=== PATIENT | male | born 2005 | race Two or more races ===

== ENCOUNTER 2024-06-19 10:43 | Emergency (ER) | payer BC, MEDICAID ==
[~2024-06-19] VITALS: Ht 162.6 cm; Wt 63.2 kg
--- NOTE | 2024-06-19 11:50 | DVH ---
PROCEDURE: Left foot radiographs. INDICATION: INJURY, LEFT 5TH TOE TECHNIQUE: 3 views of the left foot were obtained. COMPARISON: None FINDINGS: There is an acute fracture of the 5th proximal phalanx. Joint spaces are maintained. The s oft tissues are unremarkable. IMPRESSION: 1. Acute fracture of the 5th proximal phalanx.
[2024-06-19] MEDS ORDERED: IBUP-1456 PO (13:27)
--- NOTE | 2024-06-19 13:29 | ED.PDOC ---
Musculoskeletal HPI Comments A 18 YEAR OLD MALE PRESENTS TO THE ED WITH COMPLAINT OF TOE PAIN. PATIENT REPORTS THAT HE HAD BEEN RUNNING TO HIS ROOM WHEN HE ACCIDENTALLY JAMMED HIS LEFT FIFTH TOE INTO A WALL, CAUSING A LOT OF PAIN AND BRUISING TO THE AREA. PATIENT DENIES NUMBNESS, WEAKNESS, FALL, OR OTHER COMPLAINTS. NO OTHER SYMPTOMS OR MODIFYING FACTORS AT THIS TIME. Chief Complaint: Lower Extremity Time Seen by MD: 13:15 Reviewed Notes: Nurses Notes, Medications, Allergies Allergies: Coded Allergies: NO KNOWN ALLERGIES (Unverified , 06/19/24) Home Meds Active Scripts Ibuprofen (Ibuprofen) 800 Mg Tab, 1 TAB PO TID, #30 TAB Prov:BOLA GANHANK KIRAN 06/19/24 Information Source: Patient Mode of Arrival: Ambulatory Location: Left Extremity Location: Little Toe Timing: Hours Prehospital treatment: None Severity: Moderate Able to Move Extremity: Yes Bear Weight: Fully Pain: Moderate Mechanism: Jam Circumstances: Accident Onset of Symptoms: After Trauma Symptoms: Swelling, Pain DVT Risk Factors: NONE Last Tetanus: Unknown Associated signs and symptoms: None Past Medical History PAST MEDICAL HISTORY: Denies Surgical History: Denies all surgeries Family History Family History: Reviewed,noncontributory to illness Social History Smoker: Non-Smoker Alcohol: Denies ETOH Use Drugs: Denies Drug Use Lives In: Home Constitutional: denies: chills, diaphoresis, fatigue, fever, malaise, sweats, weakness, others EENTM: denies: blurred vision, double vision, ear bleeding, ear discharge, ear drainage, ear pain, ear ringing, eye pain, eye redness, hearing loss, mouth pain, mouth swelling, nasal discharge, nose bleeding, nose congestion, nose pain, photophobia, tearing, throat pain, throat swelling, voice changes, others Respiratory: denies: cough, hemoptysis, orthopnea, SOB at rest, shortness of breath, SOB with excertion, stridor, wheezing, others Cardiovascular: denies: chest pain, dizzy spells, diaphoresis, Dyspnea on exertion, edema, irregular heart beat, left arm pain, lightheadedness, palpitations, PND, syncope, others Gastrointestinal: denies: abdomen distended, abdominal pain, blood streaked bowels, constipated, diarrhea, dysphagia, difficulty swallowing, hematemesis, melena, nausea, poor appetite, poor fluid intake, rectal bleeding, rectal pain, vomiting, others Genitourinary: denies: burning, dysuria, flank pain, frequency, hematuria, incontinence, penile discharge, penile sore, pain, testicle pain, testicle swelling, urgency, others Neurological: denies: dizziness, fainting, headache, left sided numbness, left sided weakness, numbness, paresthesia, pre-existing deficit, right sided numbness, right sided weakness, seizure, speech problems, tingling, tremors, weakness, others Musculoskeletal: reports: joint pain, joint swelling, others (LEFT FIFTH TOE INJURY); denies: back pain, gout, muscle pain, muscle stiffness, neck pain Integumetry: reports: bruises (LEFT 5TH TOE REGION ); denies: change in color, change in hair/nails, dryness, laceration, lesions, lumps, rash, wounds, others Allergic/Immunocompromised: denies: Difficulty Healing, Frequent Infections, Hives, Itching, others Hematologic/Lymphatic: denies: anemia, blood clots, easy bleeding, easy bruising, swollen glands, others Endocrine: denies: excessive hunger, excessive sweating, excessive thirst, excessive urination, flushing, intolerance to cold, intolerance to heat, unexplained weight gain, unexplained weight loss, others Psychiatric: denies: anxiety, bipolar disorder, depression, hopeless, panic disorder, schizophrenia, sleepless, suicidal, others All Other Systems: Reviewed and Negative Physical Exam General Appearance: No Apparent Distress, Normal HEENT: Normal ENT Inspection, PERRL/EOMI Neck: Full Range of Motion, Non-Tender, Normal, Normal Inspection Respiratory: Chest Non-Tender, Lungs Clear, No Accessory Muscle Use, No Respiratory Distress, Normal Breath Sounds Cardiovascular: No Edema, No JVD, No Murmur, No Gallop, Normal Peripheral Pulses, Regular Rate/Rhythm Breast Exam: Deferred Gastrointestinal: No Organomegaly, Non Tender, No Pulsatile Mass, Normal Bowel Sounds, Soft Genitalia: Deferred Pelvic: Deferred Rectal: Deferred Extremities: No calf tenderness, Normal capillary refill, Normal range of motion, No pedal edema, Tender (WITH LOCALIZED CONTUSION AND SWELLING ON LEFT 5TH TOE REGION, NO DEFORMITY. ) Musculoskeletal : Apperance: Normal Neurologic: Alert, assistant surveyor II-XII nml as Tested, No Motor Deficits, Normal Affect, Normal Mood, No Sensory Deficits Cerebellar Function: Normal Reflexes: Normal Skin: Bruises (AND SWELLING ON LEFT 5TH TOE REGION. ), Dry, Normal Color, Warm Peripheral Pulses: 2+ dorsalis pedis (R), 2+ dorsalis pedis (L) Lymphatic: No Adenopathy Was a procedure done? Was a procedure done?: No Differential Diagnosis EXT Differential Diagnosis: Fracture, Sprain, Contusion, Strain, Bursitis X-Ray, Labs, Meds, VS Vital Signs Date Time Temp Pulse Resp B/P (MAP) Pulse Ox O2 Delivery O2 Flow Rate FiO2 06/19/24 13:30 88 18 98 Room Air 06/19/24 13:30 98.7 88 18 148/58 (88) 98 98.7 06/19/24 11:05 98.9 89 18 143/59 (87) 98 LT FOOT XR: FINDINGS: There is an acute fracture of the 5th proximal phalanx. Joint spaces are maintained. The soft tissues are unremarkable. IMPRESSION: 1. Acute fracture of the 5th proximal phalanx. X-Ray, Labs, Meds, VS Comment TOE TAPPED AND POST OP SHOE APPLIED TO LEFT FOOT Images Reviewed?: Images reviewed and evaluated by me Time of 1ST Reevaluation: 13:36 Reevaluation 1ST: Improved Patient Education/Counseling: Diagnosis, Treatment, Need For Follow Up Family Education/Counseling: Diagnosis, Treatment, No Family Present Medical Screening: No EMC Exist At This Time Departure 1 Departure Time of Disposition: 13:37 Impression: Primary Impression: Closed fracture of phalanx of left fifth toe Qualified Codes: S92.502A - Displaced unspecified fracture of left lesser toe(s), initial encounter for closed fracture Disposition: 01 HOME / SELF CARE / HOMELESS Condition: Stable Additional Instructions: FOLLOW-UP WITH PCP IN 1 TO 2 DAYS. TAKE MEDICATIONS PRESCRIBED. RETURN TO ED FOR ANY NEW OR WORSENING SYMPTOMS. e-Prescriptions Ibuprofen (Ibuprofen) 800 Mg Tab 1 TAB PO TID, #30 TAB Prov: CALI GAN 06/19/24 Discharged With: Self Critical Care Note Critical Care Time?: No Stability Stability form required: No Heart Score Heart Score: Heart Score Response (Comments) Value History N/A 0 EKG N/A 0 Age N/A 0 Risk Factors N/A 0 Troponin N/A 0 Total 0 I personally scribed for CALI GAN ([email or web address]) on 06/19/24 at 13:28. Electronically submitted by Maulik Bagley ([email or web address]). CALI GAN Jun 19, 2024 13:28
[2024-06-19 13:30] VITALS: BP 148/58; PULSE 88; RESP 18; TEMP 98.7; O2SAT 98
== END 2024-06-19 13:35 | disposition home or self-care (01) ==
LOC: ER 10:43
DX: S92.512A Displaced fracture of proximal phalanx of left lesser toe(s), initial encounter for closed fracture (principal); Z79.1 Long term (current) use of non-steroidal anti-inflammatories (NSAID); W22.8XXA Striking against or struck by other objects, initial encounter; Y93.02 Activity, running; Y92.89 Other specified places as the place of occurrence of the external cause; Y99.8 Other external cause status
CPT/HCPCS: 73630